=== PATIENT | male | born 1955 | race Caucasian/White ===

== ENCOUNTER → 2024-11-15 14:57 | Outpatient (CLI) | payer MEDICARE, SELFPAY ==
--- NOTE | 2024-11-15 15:02 | DI.MRI.S_ITS ---
PROCEDURE: MR LUMBAR SPINE WO CON INDICATIONS: LOW BACK PAIN RADIATING DOWN LEG TECHNIQUE: Noncontrast sagittal T1 spin echo and T2 fast echo, sagittal STIR, and T2 fast spin echo through the lumbar spine. In cases with scoliosis, additional coronal T2 fast spin echo may be performed. COMPARISON: None. FINDINGS: Image quality: Excellent. Alignment and Curvature: There is minimal retrolisthesis at L1-L2. Minimal anterolisthesis is seen at L5-S1. Bone Marrow: Marrow is of normal overall signal. No acute vertebral body compression fractures. Spinal Cord: Conus medullaris terminates at the L1 level. Visualized cord demonstrates normal signal and size. Paraspinous Soft Tissues: No paravertebral masses. T12-L1: The disc height is well-preserved. Loss of disc signal is seen at this level. There is at least moderate bilateral neural foraminal narrowing. No central canal narrowing is seen. L1-L2: Mild loss of disc height is seen. Loss of disc signal is seen. Moderate generalized disc bulge is seen. There is at least moderate bilateral neural foraminal narrowing seen. Moderate central canal narrowing is seen. L2-L3: The disc height is well-preserved. Loss of disc signal is seen at this level. Moderate generalized disc bulge is seen. There is a central/right disc extrusion, with superior migration of the disc material, which is best demonstrated on series 2, image 7. The extruded disc material measures 11 mm craniocaudal. Moderate facet joint hypertrophy is seen. There is moderate to severe right-sided and at least moderate left-sided neural foraminal narrowing. There is a degree of compression seen upon the exiting nerve roots. Moderate central canal narrowing is seen. L3-L4: The disc height is well-preserved. Loss of disc signal is seen at this level. Moderate disc bulge is seen, which is eccentric to the left. There is a degree of compression seen upon the exiting nerve roots. There is moderate right-sided and at least moderate left-sided neural foraminal narrowing. There is at least moderate right-sided and moderate to severe left-sided neural foraminal narrowing. There is a degree of compression seen upon the exiting nerve roots. Moderate central canal narrowing is seen. L4-L5: The disc height and disk signal are relatively well-preserved. Mild to moderate disc bulge is seen, which is eccentric to the left. Mild to moderate facet hypertrophy is seen. There is moderate to severe bilateral neural foraminal narrowing, left worse than right. There is a degree of compression seen upon the exiting nerve roots. No significant central canal narrowing is seen. L5-S1: Moderate loss of disc height is seen. Loss of disc signal is seen. Moderate generalized disc bulge is seen. There is moderate right-sided and mild left-sided facet hypertrophy. Moderate bilateral neural foraminal narrowing is seen. No central canal narrowing is seen. There is a likely a butterfly vertebral body at S1, although this is not well seen. IMPRESSION: At the L2-L3 level, there is a central/right disc extrusion, with superior migration of the disc material. Milder degenerative changes are seen elsewhere. Several sites of significant neural foraminal narrowing can be seen, with associated exiting nerve root compression. Dictated by: Jerry Doan M.D. on 11/16/2024 at 18:08 Approved by: Jerry Doan M.D. on 11/16/2024 at 18:13
== END ==
PROVIDERS: Referring Provider Psychiatry & Neurology Neurology; Visit Provider Psychiatry & Neurology Neurology
DX: M47.816 Spondylosis without myelopathy or radiculopathy, lumbar region (principal); M47.817 Spondylosis without myelopathy or radiculopathy, lumbosacral region; M48.061 Spinal stenosis, lumbar region without neurogenic claudication; M48.07 Spinal stenosis, lumbosacral region; M51.26 Other intervertebral disc displacement, lumbar region; M79.606 Pain in leg, unspecified
CPT/HCPCS: 72148